=== PATIENT | male | born 1950 | race Caucasian/White ===

== ENCOUNTER 2020-01-08 13:09 | Outpatient (CLI) | payer OTHER, SELFPAY ==
--- NOTE | 2020-01-08 13:16 | ECHO_ITS ---
Patient Info Name: Vinod Jaramillo Age: 69 years : 1950 Gender: Male Ht: 68 in Wt: 160 lbs BSA: 1.87 m2 HR: 55 bpm BP: 132 / 60 mmHg Heart Rhythm: Sinus Rhythm Technical Quality: Fair Exam Date: 01/08/2020 1:41 PM Exam Location: [facility] Patient Status: Outpatient Admit Date: 01/08/2020 Staff Ordering Physician: Makenna Vidal MD Seed Potato Arranger: Carol Ann Cosme RDCS Attending Provider: Makenna Vidal MD Referring Physician: Young OROPEZA; Exam Type: CA echo doppler color flow Study Info Indications Z95.2 - Presence of prosthetic heart valve Strain analysis performed. Complete two-dimensional, color flow and Doppler transthoracic echocardiogram is performed. History/Risk Factors Hypertension: Yes Dyslipidemia: No Congenital Heart Disease (CHD): Yes Peripheral Arterial Disease (PAD): No Myocardial Infarction (TN): No Chronic Lung Disease: No Obesity: No Renal Disease: No Coronary Artery Disease (CAD) No Congestive Heart Failure (CHF): No Cardiomyopathy/LV Systolic Dysfunction: No Diabetes Mellitus: No COPD: No Tobacco Use: Never Cerebrovascular Disease: No Family History: Coronary Artery Disease Deep Vein Thrombosis (DVT): None Dialysis: None Frailty Scale (CSHA): 2: Well Cardiac Arrest: No Summary 1. Complete two-dimensional, color flow and Doppler transthoracic echocardiogram is performed. 2. Left ventricular chamber dimension is mildly enlarged. 3. Left ventricular systolic function is normal, estimated at 55-60%. 4. The left ventricular diastolic function is grade I diastolic dysfunction. 5. E/e' 6 is not elevated. 6. Global longitudinal strain is normal at -19.5%. 7. The bioprosthetic aortic valve is not well visualized. 8. There is mild regurgitation of the bioprosthetic aortic valve. 9. There is mild mitral valve regurgitation. 10. No pulmonary hypertension, estimated pulmonary arterial systolic pressure is 26 mmHg. Left Ventricle E/e' 6 is not elevated. Global longitudinal strain is normal at -19.5%. Left ventricular chamber dimension is mildly enlarged. Left ventricular systolic function is normal, estimated at 55-60%. The left ventricular diastolic function is grade I diastolic dysfunction. Right Ventricle Right ventricular chamber dimension is normal. Right ventricular systolic function is normal. Left Atria Left atrial chamber dimension is normal. Right Atria Right atrial chamber dimension is normal. Aortic Valve The bioprosthetic aortic valve is not well visualized. There is no bioprosthetic aortic valve stenosis. There is mild regurgitation of the bioprosthetic aortic valve. Pulmonic Valve There is no pulmonic regurgitation. Mitral Valve There is no mitral valve stenosis. There is mild mitral valve regurgitation. Tricuspid Valve There is no tricuspid valve regurgitation. No pulmonary hypertension, estimated pulmonary arterial systolic pressure is 26 mmHg. Pericardium/Pleural There is no pericardial effusion. Inferior Vena Cava Normal inferior vena cava with >50% collapse upon inspiration consistent with normal right atrial pressure, 5 mmHg. Aorta The aortic root size at the sinus of Valsalva is normal. Left Ventricular Outflow Tract Name Value Normal
== END 2020-01-08 13:10 | disposition home or self-care (01) ==
LOC: CHSIMG 13:11
PROVIDERS: PCP Internal Medicine; Visit Provider Internal Medicine
DX: Z95.2 Presence of prosthetic heart valve (principal)
CPT/HCPCS: 93306

== ENCOUNTER 2020-04-10 07:19 | Outpatient (CLI) | payer OTHER, SELFPAY ==
[2020-04-10 07:40] LABS: Add Urine Microscopic? NO; Appearance Urine Clear (Clear); Bilirubin Urine Negative (Negative); Blood Urine Negative (Negative); Color Urine Yellow (Yellow); Glucose Urine UA Negative (Negative); Ketones Urine Negative (Negative); Leukocyte Esterase Ur Negative (Negative); Nitrate Urine Negative (Negative); Protein Urine Negative (Negative); Urobilinogen Urine 0.2 mg/dL (0.2-1.0)
[2020-04-10 07:44] LABS: Basophils Absolute Auto 0.03 K/mm3 (0.00-0.10); Basophils Percent Auto 0.6 % (0.0-1.0); Eosinophils Absolute Auto 0.06 K/mm3 (0.02-0.50); Eosinophils Percent Auto 1.2 % (1.0-6.0); Hematocrit 45.9 % (37.0-46.0); Hemoglobin 14.7 g/dL (12.4-15.3); Immature Granulocyte Absolute 0.01 K/mm3 (0.00-0.00); Immature Granulocyte Percent A 0.2 % (0.0-0.0); Lymphocytes Absolute Auto 1.69 K/mm3 (1.10-4.50); Lymphocytes Percent Auto 32.8 % (18.0-42.0); Mean Corpuscular Hemoglobin 31.1 pg (27.0-31.0); Mean Corpuscular Volume 97.2 fL (78.0-102.0); Monocytes Absolute Auto 0.34 K/mm3 (0.10-0.90); Monocytes Percent Auto 6.6 % (2.0-11.0); Neutrophils Percent Auto 58.6 % (50.0-70.0); Platelet Count Result 113 K/mm3 (150-420); Red Blood Count 4.72 M/mm3 (4.70-6.10); Red Cell Distribution Width 12.6 % (11.6-14.4); White Blood Count 5.2 K/mm3 (4.8-10.8)
[2020-04-10 07:49] LABS: Mean Platelet Volume 14.7 fl (8.7-11.0)
[2020-04-10 08:56] LABS: Alanine Aminotransferase 30 U/L (16-63); Albumin Level 4.3 g/dL (3.4-5.0); Alkaline Phosphatase 60 U/L (46-116); Anion Gap 7 mmol/L (8-16); Aspartate Amino Transferase 21 U/L (15-37); Bilirubin,Total 0.6 mg/dL (0.00-1.00); Blood Urea Nitrogen 33 mg/dL (7-18); Calcium 9.6 mg/dL (8.5-10.1); Carbon Dioxide 29 mmol/L (21-32); Chloride 107 mmol/L (98-108); Cholesterol 159 mg/dL (0-200); Creatine Kinase 80 U/L (39-308); Estimated Glomerular Filt Rate > 60; Glucose 84 mg/dL (70-99); HDL Direct 42 mg/dL (40-60); LDL Cholesterol Calculated 92 mg/dL (<130); Osmolality Calculated 302 mOsm/kg (285-295); Potassium 4.5 mmol/L (3.5-5.1); Prostate Specific Antigen 0.8 ng/mL (< OR = 4.0); Sodium 143 mmol/L (136-145); Total Protein 7.4 g/dL (6.4-8.2); Triglycerides 126 mg/dL (0-150)
[2020-04-13 12:09] LABS: Vitamin D 25 Hydroxy 36 ng/mL (30-100)
== END 2020-04-10 07:20 | disposition home or self-care (01) ==
LOC: CHSLAB 07:22
PROVIDERS: PCP Internal Medicine; Visit Provider Internal Medicine
DX: I35.0 Nonrheumatic aortic (valve) stenosis (principal); E55.9 Vitamin D deficiency, unspecified; D69.6 Thrombocytopenia, unspecified; I10 Essential (primary) hypertension; E78.2 Mixed hyperlipidemia; Z12.5 Encounter for screening for malignant neoplasm of prostate
CPT/HCPCS: 36415; 80053; 80061; 81003; 82306; 82550; 84153; 85025; G0103

== ENCOUNTER 2021-01-13 10:17 | Outpatient (CLI) | payer MEDICARE, SELFPAY | END 2021-01-13 10:18 | disposition home or self-care (01) | PROVIDERS: PCP Internal Medicine; Visit Provider Internal Medicine | DX: Z95.2 Presence of prosthetic heart valve (principal) | CPT/HCPCS: 93306 ==

== ENCOUNTER 2021-04-12 07:05 | Outpatient (CLI) | payer MEDICARE, SELFPAY ==
[2021-04-12 07:22] LABS: Hematocrit 45.6 % (37.0-46.0); Hemoglobin 14.7 g/dL (12.4-15.3); Immature Platelet Fraction Pct 21.1 % (1.0-7.0); Mean Corpuscular HGB Conc 32.2 g/dL (32.0-36.0); Mean Corpuscular Hemoglobin 31.5 pg (27.0-31.0); Mean Corpuscular Volume 97.9 fL (78.0-102.0); Mean Platelet Volume 14.5 fl (8.7-11.0); Platelet Count Result 123 K/mm3 (150-420); Red Blood Count 4.66 M/mm3 (4.70-6.10); Red Cell Distribution Width 12.6 % (11.6-14.4); White Blood Count 7.7 K/mm3 (4.8-10.8)
[2021-04-12 07:40] LABS: Hemoglobin A1C 5.4 % (<5.7)
[2021-04-12 07:46] LABS: Add Urine Microscopic? NO; Appearance Urine Clear (Clear); Bilirubin Urine Negative (Negative); Blood Urine Negative (Negative); Color Urine Yellow (Yellow); Glucose Urine UA Negative (Negative); Ketones Urine Negative (Negative); Leukocyte Esterase Ur Negative LEU/UL (Negative); Nitrate Urine Negative (Negative); Protein Urine Negative (Negative); Specific Grav Ur 1.025 (1.010-1.020); Urobilinogen Urine 0.2 mg/dL (0.2-1.0); pH Urine 5.5 (5.0-8.0)
[2021-04-12 07:51] LABS: Band Neutrophils Percent 1 % (0-6); Eosinophils Absolute Manual 0.15 K/mm3 (0.02-0.5); Eosinophils Percent Manual 2 % (1-6); Lymphocytes Absolute Manual 2.69 K/mm3 (1.1-4.5); Lymphocytes Percent Manual 35 % (18-44); Monocytes Absolute Manual 0.61 K/mm3 (0.1-0.90); Monocytes Percent Manual 8 % (3-9); Neutrophils Absolute Manual 4.23 K/mm3 (1.3-6.7); Neutrophils Percent Manual 54 % (46-73); Total Cells Counted 100
[2021-04-12 07:52] LABS: Platelet Estimate Adequate (Adequate)
[2021-04-12 07:57] LABS: Creatinine Urine 171.35 mg/dL (40-278); MALB Creatinine Ratio 12.1 mg/g (0-30); Microalbumin Urine Random 20.8 mg/L
[2021-04-12 08:25] LABS: Alanine Aminotransferase 42 U/L (16-63); Albumin Level 4.1 g/dL (3.4-5.0); Alkaline Phosphatase 65 U/L (46-116); Anion Gap 11 mmol/L (8-16); Aspartate Amino Transferase 24 U/L (15-37); Bilirubin,Total 0.7 mg/dL (0.00-1.00); Blood Urea Nitrogen 33 mg/dL (7-18); Calcium 9.1 mg/dL (8.5-10.1); Carbon Dioxide 28 mmol/L (21-32); Chloride 106 mmol/L (98-108); Cholesterol 153 mg/dL (0-200); Creatine Kinase 92 U/L (39-308); Estimated Glomerular Filt Rate > 60; Glucose 88 mg/dL (70-99); HDL Direct 43 mg/dL (40-60); LDL Cholesterol Calculated 83 mg/dL (<130); Osmolality Calculated 306 mOsm/kg (285-295); Potassium 4.4 mmol/L (3.5-5.1); Prostate Specific Antigen 0.8 ng/mL (< OR = 4.0); Sodium 145 mmol/L (136-145); Total Protein 7.2 g/dL (6.4-8.2); Triglycerides 135 mg/dL (0-150)
[2021-04-15 10:39] LABS: Vitamin D 25 Hydroxy 36 ng/mL (30-100)
== END 2021-04-12 07:06 | disposition home or self-care (01) ==
LOC: CHSLAB 07:07
PROVIDERS: PCP Internal Medicine; Visit Provider Internal Medicine
DX: E55.9 Vitamin D deficiency, unspecified (principal); E78.2 Mixed hyperlipidemia; I10 Essential (primary) hypertension; Z12.5 Encounter for screening for malignant neoplasm of prostate; R73.01 Impaired fasting glucose
CPT/HCPCS: 36415; 80053; 80061; 81003; 82043; 82306; 82550; 83036; 84153; 85025; 85055; G0103

== ENCOUNTER 2021-05-26 07:34 | Outpatient (CLI) | payer MEDICARE, SELFPAY ==
[2021-05-26 08:32] LABS: Anion Gap 8 mmol/L (8-16); Blood Urea Nitrogen 30 mg/dL (7-18); Calcium 9.3 mg/dL (8.5-10.1); Carbon Dioxide 29 mmol/L (21-32); Chloride 103 mmol/L (98-108); Estimated Glomerular Filt Rate > 60; Glucose 84 mg/dL (70-99); Magnesium 2.5 mg/dL (1.8-2.4); Osmolality Calculated 295 mOsm/kg (285-295); Potassium 4.3 mmol/L (3.5-5.1); Sodium 140 mmol/L (136-145)
== END 2021-05-26 07:35 | disposition home or self-care (01) ==
LOC: CHSLAB 07:37
PROVIDERS: PCP Internal Medicine; Visit Provider Specialist
DX: Z95.2 Presence of prosthetic heart valve (principal); I10 Essential (primary) hypertension
CPT/HCPCS: 36415; 80048; 83735

== ENCOUNTER 2021-11-16 12:22 | Outpatient (CLI) | payer MEDICARE, SELFPAY ==
[2021-11-16 13:17] LABS: SARS-CoV-2 RNA PCR Positive (Negative)
== END 2021-11-16 12:23 | disposition home or self-care (01) ==
LOC: CHSLAB 12:25
PROVIDERS: PCP Internal Medicine; Visit Provider Internal Medicine
DX: U07.1 COVID-19 (principal)
CPT/HCPCS: C9803; U0003; U0005

== ENCOUNTER 2022-05-12 07:29 | Outpatient (CLI) | payer MEDICARE, SELFPAY ==
[2022-05-12 07:54] LABS: Add Urine Microscopic? NO; Appearance Urine Clear (Clear); Bilirubin Urine Negative (Negative); Blood Urine Negative (Negative); Color Urine Yellow (Yellow); Glucose Urine UA Negative (Negative); Ketones Urine Negative (Negative); Leukocyte Esterase Ur Negative LEU/UL (Negative); Nitrate Urine Negative (Negative); Protein Urine Negative (Negative); Specific Grav Ur 1.015 (1.010-1.020); Urobilinogen Urine 0.2 mg/dL (0.2-1.0)
[2022-05-12 08:10] LABS: Basophils Absolute Auto 0.04 K/mm3 (0.00-0.10); Basophils Percent Auto 0.4 % (0.0-1.0); Eosinophils Absolute Auto 0.11 K/mm3 (0.02-0.50); Eosinophils Percent Auto 1.2 % (1.0-6.0); Hematocrit 42.9 % (37.0-46.0); Hemoglobin 13.9 g/dL (12.4-15.3); Immature Granulocyte Absolute 0.01 K/mm3 (0.00-0.00); Immature Granulocyte Percent A 0.1 % (0.0-0.0); Immature Platelet Fraction Pct 18.6 % (1.0-7.0); Lymphocytes Percent Auto 21.1 % (18.0-42.0); Mean Corpuscular HGB Conc 32.4 g/dL (32.0-36.0); Mean Corpuscular Hemoglobin 31.1 pg (27.0-31.0); Monocytes Absolute Auto 0.55 K/mm3 (0.10-0.90); Monocytes Percent Auto 6.1 % (2.0-11.0); Neutrophils Absolute Auto 6.4 K/mm3 (1.7-7.2); Neutrophils Percent Auto 71.1 % (50.0-70.0); Platelet Count Result 124 K/mm3 (150-420); Red Blood Count 4.47 M/mm3 (4.70-6.10); Red Cell Distribution Width 12.2 % (11.6-14.4)
[2022-05-12 08:21] LABS: Hemoglobin A1C 5.4 % (<5.7)
[2022-05-12 08:33] LABS: Creatinine Urine 110.79 mg/dL (40-278); MALB Creatinine Ratio 11.7 mg/g (0-30); Microalbumin Urine Random < 13.0 mg/L
[2022-05-12 08:54] LABS: Alanine Aminotransferase 31 U/L (16-63); Albumin Level 4.2 g/dL (3.4-5.0); Alkaline Phosphatase 66 U/L (46-116); Anion Gap 6 mmol/L (8-16); Aspartate Amino Transferase 17 U/L (15-37); Bilirubin,Total 0.6 mg/dL (0.00-1.00); Blood Urea Nitrogen 34 mg/dL (7-18); Calcium 9.2 mg/dL (8.5-10.1); Carbon Dioxide 30 mmol/L (21-32); Chloride 103 mmol/L (98-108); Cholesterol 156 mg/dL (0-200); Creatine Kinase 84 U/L (39-308); Estimated Glomerular Filt Rate > 60; Glucose 85 mg/dL (70-99); HDL Direct 42 mg/dL (40-60); LDL Cholesterol Calculated 88 mg/dL (<130); Osmolality Calculated 294 mOsm/kg (285-295); Potassium 4.2 mmol/L (3.5-5.1); Prostate Specific Antigen 0.8 ng/mL (< OR = 4.0); Sodium 139 mmol/L (136-145); Total Protein 7.3 g/dL (6.4-8.2); Triglycerides 129 mg/dL (0-150)
[2022-05-16 09:24] LABS: Vitamin D 25 Hydroxy 37 ng/mL (30-100)
== END 2022-05-12 07:30 | disposition home or self-care (01) ==
LOC: CHSLAB 07:33
PROVIDERS: PCP Internal Medicine; Visit Provider Internal Medicine
DX: E55.9 Vitamin D deficiency, unspecified (principal); E78.2 Mixed hyperlipidemia; I10 Essential (primary) hypertension; R73.01 Impaired fasting glucose; Z12.5 Encounter for screening for malignant neoplasm of prostate; N39.0 Urinary tract infection, site not specified
CPT/HCPCS: 36415; 80053; 80061; 81003; 82043; 82306; 82550; 83036; 84153; 85025; 85055; G0103

== ENCOUNTER 2023-05-18 08:14 | Outpatient (CLI) | payer MEDICARE, SELFPAY ==
[2023-05-18 08:31] LABS: Appearance Urine Clear (Clear); Bilirubin Urine Negative (Negative); Blood Urine Negative (Negative); Color Urine Yellow (Yellow); Glucose Urine UA Negative (Negative); Ketones Urine Negative (Negative); Leukocyte Esterase Ur Negative (Negative); Nitrate Urine Negative (Negative); Protein Urine Negative (Negative); Specific Grav Ur 1.025 (1.010-1.020); Urobilinogen Urine 0.2 mg/dL (0.2-1.0)
[2023-05-18 08:47] LABS: Basophils Absolute Auto 0.01 K/mm3 (0.00-0.10); Basophils Percent Auto 0.1 % (0.0-1.0); Eosinophils Absolute Auto 0.07 K/mm3 (0.02-0.50); Hematocrit 42.3 % (37.0-46.0); Hemoglobin 13.6 g/dL (12.4-15.3); Immature Granulocyte Absolute 0.02 K/mm3 (0.00-0.00); Immature Granulocyte Percent A 0.3 % (0.0-0.0); Immature Platelet Fraction Pct 21.9 % (1.0-7.0); Lymphocytes Absolute Auto 0.75 K/mm3 (1.10-4.50); Lymphocytes Percent Auto 10.9 % (18.0-42.0); Mean Corpuscular HGB Conc 32.2 g/dL (32.0-36.0); Mean Corpuscular Hemoglobin 30.9 pg (27.0-31.0); Mean Corpuscular Volume 96.1 fL (78.0-102.0); Monocytes Absolute Auto 0.38 K/mm3 (0.10-0.90); Monocytes Percent Auto 5.5 % (2.0-11.0); Neutrophils Absolute Auto 5.6 K/mm3 (1.7-7.2); Neutrophils Percent Auto 82.2 % (50.0-70.0); Platelet Count Result 107 K/mm3 (150-420); Red Cell Distribution Width 12.6 % (11.6-14.4); White Blood Count 6.9 K/mm3 (4.8-10.8)
[2023-05-18 08:55] LABS: Add Urine Microscopic? NO
[2023-05-18 09:38] LABS: Alanine Aminotransferase 32 U/L (16-63); Albumin Level 3.9 g/dL (3.4-5.0); Alkaline Phosphatase 57 U/L (46-116); Anion Gap 9 mmol/L (8-16); Aspartate Amino Transferase 20 U/L (15-37); Bilirubin,Total 0.9 mg/dL (0.00-1.00); Blood Urea Nitrogen 39 mg/dL (7-18); Calcium 9.1 mg/dL (8.5-10.1); Carbon Dioxide 28 mmol/L (21-32); Chloride 102 mmol/L (98-108); Cholesterol 161 mg/dL (0-200); Creatine Kinase 65 U/L (39-308); Estimated Glomerular Filt Rate > 60; Glucose 100 mg/dL (70-99); HDL Direct 47 mg/dL (40-60); LDL Cholesterol Calculated 75 mg/dL (<130); NT Pro B Type Natriuretic Pept 597 pg/mL (0-450); Osmolality Calculated 297 mOsm/kg (285-295); Potassium 4.1 mmol/L (3.5-5.1); Prostate Specific Antigen 0.7 ng/mL (< OR = 4.0); Sodium 139 mmol/L (136-145); Total Protein 7.1 g/dL (6.4-8.2); Triglycerides 194 mg/dL (0-150)
== END 2023-05-18 08:15 | disposition home or self-care (01) ==
LOC: CHSLAB 08:18
PROVIDERS: PCP Internal Medicine; Visit Provider Internal Medicine
DX: E78.2 Mixed hyperlipidemia (principal); I10 Essential (primary) hypertension; D69.6 Thrombocytopenia, unspecified; I35.0 Nonrheumatic aortic (valve) stenosis; Z12.5 Encounter for screening for malignant neoplasm of prostate; I50.9 Heart failure, unspecified
CPT/HCPCS: 36415; 80053; 80061; 81003; 82550; 83880; 84153; 85025; 85055; G0103

== ENCOUNTER 2024-07-14 16:01 | Emergency (ER) | payer MEDICARE, SELFPAY ==
--- NOTE | ~2024-07-14 | XR_ITS ---
HISTORY: biceps torn ligament injury? X 2 hours ago, chopping wood COMPARISON: None TECHNIQUE: 3 views of the right shoulder were performed FINDINGS: No acute fracture. The glenohumeral and acromioclavicular joint space is maintained The visualized portion of the adjacent right lung is clear. The humeral head is well seated within the glenoid fossa. IMPRESSION: No acute fracture or anterior dislocation. Plain radiographs of the shoulder are limited for the diagnosis of a biceps tendon tear. Depending on the location of the tear, if the tendon is torn at its distal attachment, it may sometim es be visualized within the soft tissues of the elbow. Ultrasound may also be utilized to evaluate the biceps tendon, but best detected on MRI or clinical e xamination. Reviewed, dictated and finalized at location A. IMPRESSION: No acute fracture or anterior dislocation. Plain radiographs of the shoulder are limited for the diagnosis of a biceps ten don tear. Depending on the location of the tear, if the tendon is torn at its distal yon chment, it may sometimes be visualized within the soft tissues of the elbow. Ultrasound may also be utilized to evaluate the biceps tendon, but best detecte d on MRI or clinical examination.
[2024-07-14 16:05] VITALS: BP 160/67; PULSE 80; RESP 18; TEMP 36.2; O2SAT 99
--- NOTE | 2024-07-14 16:14 | ED.UPPEXIN ---
HPI - Extremity Injury (Upper) General Chief Complaint: Extremity Injury, Upper Stated Complaint: Arm Time Seen by Provider: 07/14/24 16:13 Source: patient History of Present Illness HPI narrative: 74 years old white male was shopping moods, felt a pop and severe pain at the right arm, prior to arrival to the emergency room. Related Data Allergies Allergy/AdvReac Type Severity Reaction Status Date / Time No Known Drug Allergies Allergy Unknown Rash Verified 07/14/24 16:11 Review of Systems Review of Systems: All systems reviewed & are unremarkable except as noted in HPI and below Exam Narrative: General appearance: Well-developed, well-nourished Skin: Normal color Head: Normocephalic, nontraumatic Eyes: Clear conjunctiva ENT: Oropharynx normal, ears normal, nose normal Neck: Supple, nontender Chest and respiratory: Airway patent, no respiratory distress, no accessory muscle use Heart: Regular rate/rhythm Abdomen: Soft, nontender, no organomegaly, quiet bowel sounds Vascular: Normal peripheral pulses, normal capillary refill. Musculoskeletal: right arm showing a bulge of the biceps, patient is able to bend his elbow with pain and weakness DICKSON,S DEFORMITY Neurologic: Alert and oriented ?3, FACEPIECE LINE SUPERVISOR is normal as tested, no gross motor deficit Course Consultations Consultation #1: DR KAISER HE REPORTS NO SURGERY, HEALS VERY WELL BUT WITH POP BY MUSCLE DEFORMITY, BUT NO FUNCTIONAL LOSS. HE CAN FOLLOW UP IN MY CLINIC. Date: 07/14/24 Vital Signs Vital signs: Vital Signs Temperature 36.2 C L 07/14/24 16:05 Pulse Rate 80 07/14/24 16:05 Respiratory Rate 18 07/14/24 16:05 Blood Pressure 160/67 H 07/14/24 16:05 Pulse Oximetry 99 07/14/24 16:05 Oxygen Delivery Room Air 07/14/24 16:05 Temperature 36.2 C L 07/14/24 16:05 Pulse Rate 80 07/14/24 16:05 Respiratory Rate 18 07/14/24 16:05 Blood Pressure 160/67 H 07/14/24 16:05 Pulse Oximetry 99 07/14/24 16:05 Oxygen Delivery Room Air 07/14/24 16:05 MDM - Extremity Injury (Upper) MDM Narrative Medical decision making narrative: DIFFERENTIAL DIAGNOSIS PARTIAL VERSUS COMPLETE BICEPS TENDON RUPTURE PHYSICAL EXAMINATION INDICATING COMPLETE BICEPS TORN, PROXIMAL, X-RAY OF RIGHT SHOULDER SHOWED NO ACUTE OSSEOUS ABNORMALITY DR. KAISER WAS NOTIFIED AND RECOMMENDS OUTPATIENT FOLLOW-UP Differential Diagnosis Differential diagnosis: Likely other ( BICEPS TENDON TORN PARTIAL VERSUS COMPLETE) Imaging Data Radiologist's impression: Impressions Shoulder X-Ray 07/14/24 16:29 IMPRESSION: No acute fracture or anterior dislocation. Plain radiographs of the shoulder are limited for the diagnosis of a biceps tendon tear. Depending on the location of the tear, if the tendon is torn at its distal attachment, it may sometimes be visualized within the soft tissues of the elbow. Ultrasound may also be utilized to evaluate the biceps tendon, but best detected on MRI or clinical examination. Critical Care Time Critical Care Time Critical Care Time: No Discharge Plan Discharge Clinical Impression: Biceps tendon rupture, proximal Patient Disposition: Home, Self-Care Condition: Stable Instructions: How to Use a Sling (ED), Tendon Rupture (ED) Additional Instructions: Return if symptoms are worsening , call DR KAISER for appointment, TAKE IBUPROFEN 600 EVERY 6 HOURS NEEDED Patient Language: Vietnamese Prescriptions: New hydrocodone-acetaminophen 5-325 mg tablet 1 tablet PO Q4H Qty: 20 0RF Follow-up/Referrals: Makenna Vidal MD [Primary Care Provider] - Bertram Kaiser MD [Physician] - 07/15/24
--- OUTSIDE RECORDS SUMMARY | 2024-07-14 18:35 | XMS_ITS | Encounter Summary ---
Author Organization [facility] Address [facility] [place] [address] Care Team Providers Care Bridge Ironworker Helper Name Role Phone Makenna Vidal MD Primary Care Provider [phone] Linden Sanchez MD Unavailable Unavailabl Ewa Leigh MD Unavailable Encounter Details Date Type Department Care Team (Late st Contact Info) Description 12/17/2014 [facility] AT [address] [address] Linden Sanchez MD Social History Tobacco Use Types Packs/Day Years Used Date Smoking Tobacco: Never Alcohol Use Standard Drinks/Week Comments No 0 (1 standard drink = 0.6 oz pur e alcohol) Sex and Gender Information Value Date Recorded Sex Assigned at Male 06/16/2024 9:48 AM CASTABLES WORKER Legal Sex Male 1:41 AM CDT Gender Identity Not on file Sexual Orientation Not on file 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 [place] [address] Ewa Miller MD [address] [place], [place] [id number] 07/06/2025 1:15 PM CDT Office Visit [facility] [address] [place] [phone] Ewa Miller MD [address] [place] [address] documented as of this encounter Visit Diagnoses Not on filedocumented in this encounter Care Teams Bridge Ironworker Helper Relationship Specialty Start Date End Date Makenna Vidal MD [address] [place] [address] PCP - General INTERNAL MEDICINE 01/19/16 Linden Sanchez MD [address] [place] [address] [place] Oyster Grader CARDIOVASCULAR DISEASE 01/19/16 11/03/23 Ewa Miller MD [address] [place] [address] Consulting Physician CARDIOVASCULAR DISEASE 11/04/23 documented as of this encounter
--- OUTSIDE RECORDS SUMMARY | 2024-07-14 18:35 | XMS_ITS | Clinical Summary ---
Author Organization [facility] Address [address] [place] [address] Care Team Providers Care Yacht Hand Name Role Phone Makenna Vidal MD Primary Care Provider [phone] Ewa Haley MD Unavailable Allergies No known active allergies Medications aspirin EC 81 MG tablet Take 1 tablet (81 mg total) by mouth daily. 05/23/2012 Active simvastatin 10 MG tablet Take 1 tablet (10 mg total) by mouth daily. 05/23/2012 Active vitamin D3, cholecalciferol , 25 MCG (1000 UT) capsule Take 2 tablets by mouth daily. 05/23/2012 Active metoprolol tartrate 50 MG tablet Take by mouth 2 (two) times daily. Active ALPRAZolam 0.25 MG tablet Take 1 tablet (0.25 mg total) by mouth nightly as needed for Sleep. Active irbesartan (AVAPRO) 75 MG tablet take one tablet by mouth daily 90 tablet 2 05/30/2023 Active Active Problems Problem Noted Date Diagnosed Date S/P AVR (aortic valve replacement) 05/24/2016 Thrombocytopenia Hypertension Hyperlipidemia (aortic stenosis) Arthritis Anxiety Acquired kyphosis Encounters Date Type Department Care Team Description [facility]/27[facility]2024 [facility] [address] [place] [address] Ewa Haley MD Schedule Test 06/25/2024 [facility] [address] [place] [address] Abstract, Doc Pccl 06/23/2024 3:00 PM CASE MAKING MACHINE OPERATOR Office Visit [facility] [place] [address] Ewa Haley MD 06/23/2024 2:45 PM CASE MAKING MACHINE OPERATOR - 06/23/2024 11:59 PM CASE MAKING MACHINE OPERATOR Hospital Encounter [facility] [address] [place] [address] Ewa Haley MD Discharge Disposition: Home or Self Care (Routine Discharge) 06/23/2024 Travel 06/20/2024 Telephone [facility] [address] [place] [address] Ewa Haley MD Appointment Reminder 06/19/2024 Orders Only [facility] [address] [place] [address] Ewa Haley MD 06/16/2024 9:51 AM CASE MAKING MACHINE OPERATOR - 06/16/2024 11:59 PM CASE MAKING MACHINE OPERATOR Hospital Encounter [facility] [address] [place] [address] Ewa Haley MD Discharge Disposition: Home or Self Care (Routine Discharge) 06/16/2024 Travel 04/24/2024 Orders Only [facility] [address] [place] [address] Ewa Haley MD 04/24/2024 Telephone [facility] [address] [place] [address] Ewa Haley MD Orders from Last 3 Months Family History Medical History Relation Comments CABG Brother Open Heart Brother Coronary artery disease Father Heart Attack Father Open Heart Father Stroke Father Stroke Maternal Grandfather Coronary artery disease Mother Heart Attack Other Family history p ositive for heart attack Stroke Other Family history p ositive for stroke Relation Status Comments Brother Father Maternal Grandfather Mother (Age 80) Other Other Social History Tobacco Use Types Packs/Day Years Used Date Smoking Tobacco: Former Smokeless Tobacco: Never Tobacco Cessation:Counseling Given: Not Answered Alcohol Use Standard Drinks/Week Comments No 0 (1 standard drink = 0.6 oz pur e alcohol) Sex and Gender Information Value Date Recorded Sex Assigned at Male 06/16/2024 9:48 AM CASE MAKING MACHINE OPERATOR Legal Sex Male 1:41 AM CDT Gender Identity Not on file Sexual Orientation Not on file 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 Not on fi le Not on file Last Filed Vital Signs Vital Sign Reading Time Taken Comments Blood Pressure 120/62 06/23/2024 4:05 PM CASE MAKING MACHINE OPERATOR Pulse 57 06/23/2024 4:05 PM CASE MAKING MACHINE OPERATOR Temperature - - Respiratory Rate 16 06/23/2024 4:05 PM CASE MAKING MACHINE OPERATOR Oxygen Saturation 100% 06/23/2024 4:05 PM CASE MAKING MACHINE OPERATOR Inhaled Oxygen Concentration - - Weight 70.8 kg (156 lb) 06/23/2024 4:05 PM CASE MAKING MACHINE OPERATOR Height 172.7 cm (5' 8 ) 06/23/2024 4:05 PM CASE MAKING MACHINE OPERATOR Body Mass Index 23.72 06/23/2024 4:05 PM CASE MAKING MACHINE OPERATOR Plan of Treatment Upcoming Encounters Date Type Department Care Team (Late st Contact Info) Description 06/25/2025 1:30 PM CASE MAKING MACHINE OPERATOR Appointment [facility] [address] [place] [address] [place] [address] Ewa Haley MD [address] [place] [address] 07/06/2025 1:15 PM CDT Office Visit [facility] [place] [address] Ewa Haley MD [address] [place] [address] Health Maintenance Due Date Last Done Comments Hepatitis C 02/17/1966 DTaP, Tdap and Td Vaccines (1 - Tdap) 02/17/1967 Annual Medicare Wellness Visit 02/17/2013 Zoster Vaccines (2 of 2) 09/17/2020 07/23/2020 RSV Immunization or 60+ Years (1 - 1-dose 75+ series) 02/17/2023 COVID-19 Vaccine ( season) 2023 03/22/2021, 06/25/2020, 06/04/2020 Influenza Adult (#1) 2024 02/02/2021, 02/03/2020, 02/06/2019, Additional history exists Pneumococcal Vaccine: 65+ Years Completed 05/10/2017, 05/12/2013 Meningococcal B Vaccine Aged Out No l onger eligible based on patient's age to complete this topic Meningococcal Vaccine Aged Out No bell jarrod eligible based on patient's age to complete this topic RSV Immunizations Under 20 Months Aged Out No longer eligible based on patient's age to complete this topic Procedures Procedure Name Priority Date/Time Associated Diagnosis Comments ECG 12-LEAD Routine 06/23/2024 2:55 PM CASE MAKING MACHINE OPERATOR Primary hypertension USE ECHOCARDIOGRAM Routine 06/16/2024 10 :52 AM CASE MAKING MACHINE OPERATOR Nonrheumatic aortic valve stenosis COMPREHENSIVE METABOLIC PANEL Routine 05/19/2024 LIPID PANEL Routine 05/19/2024 CBC, MANUAL DIFF Routine 05/19/2024 HEMOGLOBIN, GLYCOSYLATED Routine 05/19/2024 from Last 3 Months Results * ECG 12 lead (HOSPITAL PERFORMED ONLY) (06/23/2024 2:55 PM CASE MAKING MACHINE OPERATOR) 06/23/2024 2:55 PM CASE MAKING MACHINE OPERATOR Narrative [facility] - 06/23/2024 6:33 PM CASE MAKING MACHINE OPERATOR [place] [id number] [facility] [place] [address] Test Date: 2024-06-23 Pat Name: VINOD DALLAS Department: 3 Room: Gender: Male [employer]: : 1950 Requested By: EWA HALEY Order Number: [id number] Reading MD: Ewa aHley Measurements Intervals [place] Rate: 56 P: 66 TN: 190 QRS: 38 QRSD: 121 T: 71 QT: 446 QTc: 433 Interpretive Statements SINUS RHYTHM MODERATE INTRAVENTRICULAR CONDUCTION DELAY [110+ ms QRS DURATION] MAKING MACHINE OPERATOR Procedure Note Ewa Haley MD - 06/23/[address] [place] [address] Test Date: 2024-06-23 Pat Name: VINOD DALLAS Department: 3 Room: Gender: Male [employer]: : 1950 Requested By: EWA HALEY Order Number: [id number] Reading MD: Ewa Haley Measurements Intervals [place] Rate: 56 P: 66 TN: 190 QRS: 38 QRSD: 121 T: 71 QT: 446 QTc: 433 Interpretive Statements SINUS RHYTHM MODERATE INTRAVENTRICULAR CONDUCTION DELAY [110+ ms QRS DURATION] MAKING MACHINE OPERATOR us Ewa Haley MD ECG ORDERABLES Final Result [facility] * USE ECHOCARDIOGRAM (06/16/2024 10:52 AM CASE MAKING MACHINE OPERATOR) Anatomical Region Laterality Modality Cardiac Ultrasound 06/16/2024 10:0 4 AM CASE MAKING MACHINE OPERATOR Narrative 06/19/2024 8:46 AM CASE MAKING MACHINE OPERATOR Echocardiography Report Pat.Name: Vinod Dallas Pat.ID: [id number] .Date: 06/16/2024 Refer.MD: Jennifer, [facility] Exam Time: 10:04:00 AM Study Type:OUTREACH Height: 68 in Weight: 160 lb BSA: 1.86 m2 Age: 10 1950,74Y Sex: M Sonogrphr: Sf Pat. Stat.:Outpatient Reason for Study:Nonrheumatic aortic valve stenosis Procedures: 2D, M-mode, Doppler, Color Flow, Study performed at [place], [place] and interpreted by [facility]. ++++++++++++++++++++++++++++++++++++ SUMMARY: ++++++++++++++++++++++++++++++++++++ The left ventricular size is normal. Estimated left ventricular ejection fraction is 50-55%. The right ventricle size is normal. The right ventricular function is normal. Bioprosthetic valve is in the aortic position with normal function, post-deployment peak velocity of 2.3m/sec, mean gradient of 13mmHg. No evidence of gaby-prosthetic aortic valve regurgitation. Trace central prosthetic aortic valve regurgitation. There is trace mitral regurgitation. There is trace tricuspid regurgitation. ++++++++++++++++++++++++++++++++++++ FINDINGS: ++++++++++++++++++++++++++++++++++++ LV: The left ventricular size is normal. The left ventricular systolic function is normal. Estimated left ventricular ejection fraction is 50-55%. The average E/e' is indeterminate at 9-12 and EF is > or equal to 50. RV: The right ventricle size is normal. The right ventricular function is normal. LA: Left atrial size is normal. RA: The right atrial size is normal. GABY: No evidence of pericardial effusion. AO: Aorta is normal. PA: Unable to reliably quantitate pulmonary systolic pressure. PVn: The pulmonary vein doppler wave form is normal suggestive of normal left atrial pressures. SVn: Inferior vena cava is not assessable. AV: No evidence of gaby-prosthetic aortic valve regurgitation. Trace central prosthetic aortic valve regurgitation. Bioprosthetic valve is in the aortic position with post-deployment peak velocity of 2.3m/sec, mean gradient of 13mmHg. MV: The mitral valve is structurally normal. There is trace mitral regurgitation. PV: Trace pulmonic regurgitation. TV: The tricuspid valve appears structurally normal. There is trace tricuspid regurgitation. <Electronic Signature> 06/19/2024 08:46 AM Ewa Haley M.D. Procedure Note Ewa Haley MD - 06/19/2024 Echocardiography Report Pat.Name: Vinod Dallas Pat.ID: [id number] .Date: 06/16/2024 Refer.MD: Jennifer [facility] Exam Time: 10:04:00 AM Study Type:OUTREACH Height: 68 in Weight: 160 lb BSA: 1.86 m2 Age: 10 1950,74Y Sex: M Sonogrphr: Sf Pat. Stat.:Outpatient Reason for Study:Nonrheumatic aortic valve stenosis Procedures: 2D, M-mode, Doppler, Color Flow, Study performed at [place], [place] and interpreted by [facility]. ++++++++++++++++++++++++++++++++++++ SUMMARY: ++++++++++++++++++++++++++++++++++++ The left ventricular size is normal. Estimated left ventricular ejection fraction is 50-55%. The right ventricle size is normal. The right ventricular function is normal. Bioprosthetic valve is in the aortic position with normal function, post-deployment peak velocity of 2.3m/sec, mean gradient of 13mmHg. No evidence of gaby-prosthetic aortic valve regurgitation. Trace central prosthetic aortic valve regurgitation. There is trace mitral regurgitation. There is trace tricuspid regurgitation. ++++++++++++++++++++++++++++++++++++ FINDINGS: ++++++++++++++++++++++++++++++++++++ LV: The left ventricular size is normal. The left ventricular systolic function is normal. Estimated left ventricular ejection fraction is 50-55%. The average E/e' is indeterminate at 9-12 and EF is > or equal to 50. RV: The right ventricle size is normal. The right ventricular function is normal. LA: Left atrial size is normal. RA: The right atrial size is normal. GABY: No evidence of pericardial effusion. AO: Aorta is normal. PA: Unable to reliably quantitate pulmonary systolic pressure. PVn: The pulmonary vein doppler wave form is normal suggestive of normal left atrial pressures. SVn: Inferior vena cava is not assessable. AV: No evidence of gayb-prosthetic aortic valve regurgitation. Trace central prosthetic aortic valve regurgitation. Bioprosthetic valve is in the aortic position with post-deployment peak velocity of 2.3m/sec, mean gradient of 13mmHg. MV: The mitral valve is structurally normal. There is trace mitral regurgitation. PV: Trace pulmonic regurgitation. TV: The tricuspid valve appears structurally normal. There is trace tricuspid regurgitation. <Electronic Signature> 06/19/2024 08:46 AM Ewa Haley M.D. Ewa Haley MD ECHO Final Result * HEMOGLOBIN, GLYCOSYLATED (05/19/2024) [facility] HGB A1C 5.2 % Narrative Resulting Agency Comment [facility] Makenna Vidal MD LABORATORY Final Result * COMPREHENSIVE METABOLIC PANEL (05/19/2024) [facility] SODIUM S/P/B 143 GLUCOSE 89 mg/dL AST 21 BUN 40 CREATININE S/P/B 1.16 0.7 - 1.3 CALCIUM S/P/B 9.3 POTASSIUM S/P/B 4.6 CHLORIDE S/P/B 107 ALT 33 GFR ESTIMATE >60 Narrative Resulting Agency Comment [facility] Result [facility] Makenna Vidal MD LABORATORY Final Result * LIPID PANEL (05/19/2024) [facility] CHOLESTEROL 141 TRIGLYCERIDES 89 HDL 49 LDL (CALCULATED) 74 Narrative Resulting Agency Comment [facility] Result [facility] Makenna Vidal MD LABORATORY Final Result * CBC, MANUAL DIFF (05/19/2024) [facility] WBC 6.1 HGB 13.1 HCT 41.1 PLT 99 Narrative Resulting Agency Comment [facility] Makenna Vidal MD LABORATORY Final Result from Last 3 Months Insurance [employer] Advance Directives Documents on File Type Date Recorded Patient Gas Reverser Expl anation Advance Directives and Living Will 03/18/2020 5:04 PM DECLARATION Advance Directives and Living Will 01/06/2013 ADVANCE DIRECTIVE Advance Directives and Living Will 12/12/2012 ADVANCE DIRECTIVE Advance Directives and Living Will 11/23/2012 ADVANCE DIRECTIVE Care Teams Yacht Hand Relationship Specialty Start Date End Date Makenna Vidal MD [address] [place] [address] PCP - General INTERNAL MEDICINE 01/19/16 Ewa Haley MD [address] [place] [address] Consulting Physician CARDIOVASCULAR DISEASE 11/04/23
== END 2024-07-14 16:55 | disposition home or self-care (01) ==
PROVIDERS: Emergency Provider Emergency Medicine; PCP Internal Medicine
DX: S46.211A Strain of muscle, fascia and tendon of other parts of biceps, right arm, initial encounter (principal); X58.XXXA Exposure to other specified factors, initial encounter
CPT/HCPCS: 73030; 99283; A4565